=== PATIENT | female | born 1990 | race Caucasian/White ===

== ENCOUNTER 2016-09-27 14:41 | Emergency (ER) | payer OTHER | END 2016-09-27 17:10 | disposition home or self-care (01) | LOC: ER 14:41 | DX: H02.89 Other specified disorders of eyelid (principal) | CPT/HCPCS: 99282 ==

== ENCOUNTER 2016-11-28 17:58 | Emergency (ER) | payer OTHER | END 2016-11-28 18:18 | disposition home or self-care (01) | LOC: ER 17:58 | DX: Z04.8 Encounter for examination and observation for other specified reasons (principal); R00.0 Tachycardia, unspecified; F17.210 Nicotine dependence, cigarettes, uncomplicated; Z79.899 Other long term (current) drug therapy | CPT/HCPCS: 99282 ==